=== PATIENT | male | born 1980 | race Caucasian/White ===

== ENCOUNTER 2018-10-18 16:40 | Emergency (ER) | payer OTHER ==
[~2018-10-18] VITALS: Ht 182.9 cm; Wt 111.1 kg
[~2018-10-18 16:40] MED LIST: AZIT250 PO; CYCL10 PO; Cyclobenzaprine5 MG PO; DIAZ5 PO; HYDACE5 PO; HYDACE5325 PO; HYDR1TAB94 PO; IBUP600 PO; IBUP800 PO; Norco 5-325 Ta1 EACH PO; OXYACE5T PO; Prednisone20 MG PO; RXHYDACE PO; Ultram50 MG PO
== END 2018-10-18 18:04 | disposition home or self-care (01) ==
LOC: ER 16:40
DX: M25.562 Pain in left knee (principal); F31.9 Bipolar disorder, unspecified; F43.10 Post-traumatic stress disorder, unspecified; Z87.891 Personal history of nicotine dependence
CPT/HCPCS: 73564; 96372; 99283-25; J1885

== ENCOUNTER → 2019-02-22 | Outpatient (CLI) | payer OTHER ==
[2019-02-25 06:07] LABS: COTININE Negative ng/mL (Cutoff=300)
== END | disposition home or self-care (01) ==
LOC: LAB SHORT 13:01 → LAB 13:01 → LAB FUT 02-19 11:55
PROVIDERS: Orthopaedic Surgery
DX: Z01.818 Encounter for other preprocedural examination (principal); S83.241A Other tear of medial meniscus, current injury, right knee, initial encounter; Z71.6 Tobacco abuse counseling

== ENCOUNTER 2019-04-05 07:12 | Day surgery (SDC) | payer OTHER ==
[~2019-04-05] VITALS: Ht 182.9 cm; Wt 113.8 kg
[~2019-04-05 07:12] MED LIST changes: +EPIPEN 2-P0.3 MG/0.3 IM
--- NOTE | 2019-04-05 08:15 | NUR ---
04/05/19 0815 Holly Valdovinos VANCOMYCIN 1GM IVPB STARTED AT [address] KHAN
--- NOTE | 2019-04-05 09:53 | NUR ---
04/05/19 0953 Malia Fournier PATIENT SITTING IN RECLINER, AT SIDE. TOLERATING PO FLUIDS/FOOD NO C/O NAUSEA, STATES PAIN IS 8/10. PATIENT STATES MORE LIKE "PRESSURE". LAUGHING AND CONVERSING WITH . VSS. WILL CONTINUE TO MONITOR.
== END 2019-04-05 10:37 | disposition home or self-care (01) ==
LOC: ORSCSDS 07:12
PROVIDERS: Orthopaedic Surgery
PROC: 0SBD4ZZ Excision of Left Knee Joint, Percutaneous Endoscopic Approach (ICD-10-PCS; principal; 2019-04-05 08:30)
PROC: 0SQD4ZZ Repair Left Knee Joint, Percutaneous Endoscopic Approach (ICD-10-PCS; principal; 2019-04-05 08:30)
DX: S83.241A Other tear of medial meniscus, current injury, right knee, initial encounter (principal); Z87.891 Personal history of nicotine dependence
CPT/HCPCS: A9270-GY; C1713; J0171; J1100; J1885; J2250; J2405; J3010; J3370; J7120

== ENCOUNTER 2020-07-02 07:18 | Day surgery (SDC) | payer OTHER ==
[~2020-07-02] VITALS: Ht 182.9 cm; Wt 124.4 kg
[~2020-07-02 07:18] MED LIST changes: +Buspirone HCl15 MG PO; +CLON.5 PO
[2020-07-02] MEDS ORDERED: LORA.5 (08:25)
--- NOTE | 2020-07-02 08:33 | NUR ---
07/02/20 0833 Flor Groves ATTEMPTS X2, ONE IN HAND BY [email or web address], IV SUCCESS IN LEFT FOREARM BY [email or web address]
--- NOTE | 2020-07-02 09:57 | NUR ---
07/02/20 0957 Kimberly Everett 1CC EPI INJECTED IN EACH OF FIRST 3 3,000ML LR FOR IRRIGATION PER PHYSICIAN ORDERS
== END 2020-07-02 12:04 | disposition home or self-care (01) ==
LOC: ORSCSDS 07:18
DX: M75.121 Complete rotator cuff tear or rupture of right shoulder, not specified as traumatic (principal); M75.21 Bicipital tendinitis, right shoulder; M75.41 Impingement syndrome of right shoulder; M19.011 Primary osteoarthritis, right shoulder; M24.019 Loose body in unspecified shoulder; Z79.899 Other long term (current) drug therapy; F31.9 Bipolar disorder, unspecified; E66.01 Morbid (severe) obesity due to excess calories; Z68.37 Body mass index [BMI] 37.0-37.9, adult; Z87.891 Personal history of nicotine dependence
CPT/HCPCS: A9270; C1713; J0171; J1100; J1885; J2250; J2405; J2704; J2710; J3010; J7030; J7120

== ENCOUNTER → 2024-02-28 | Outpatient (CLI) | payer OTHER ==
[~2024-02-28] MED LIST changes: +LORA.5
[2024-03-02 16:59] LABS: VARICELLA-ZOSTER VIRUS BY PCR Not Detected; VARICELLA-ZOSTER VIRUS SOURCE R FOOT
== END ==
LOC: LAB 10:20 → LAB SHORT 10:20
PROVIDERS: Physician Assistant Medical
DX: R21 Rash and other nonspecific skin eruption (principal); L30.1 Dyshidrosis [pompholyx]; L20.89 Other atopic dermatitis; L57.8 Other skin changes due to chronic exposure to nonionizing radiation; Z79.899 Other long term (current) drug therapy; Z12.83 Encounter for screening for malignant neoplasm of skin; L82.1 Other seborrheic keratosis; D22.71 Melanocytic nevi of right lower limb, including hip; D22.5 Melanocytic nevi of trunk; L81.4 Other melanin hyperpigmentation; Z71.89 Other specified counseling
CPT/HCPCS: 87798

== ENCOUNTER → 2024-02-28 | Outpatient (CLI) | payer OTHER | LOC: LAB SHORT 10:20 → LAB 10:20 | DX: R21 Rash and other nonspecific skin eruption (principal); L30.1 Dyshidrosis [pompholyx]; L20.89 Other atopic dermatitis; L57.8 Other skin changes due to chronic exposure to nonionizing radiation; Z79.899 Other long term (current) drug therapy | CPT/HCPCS: 87070; 87205 ==